=== PATIENT | male | born 1955 | race Caucasian/White ===

== ENCOUNTER → 2024-09-04 08:02 | Outpatient (REF) | payer MEDICARE, OTHER, SELFPAY ==
[2024-09-04 09:17] LABS: Hematocrit 46.2 % (39.0-52.0); Hemoglobin 15.8 g/dL (13.0-18.0); Mean Corp Hgb Conc. 34.2 g/dL (33.0-37.0); Mean Corpuscular Hgb 31.1 pg (27.0-31.0); Mean Corpuscular Volume 90.9 fL (80.0-94.0); Platelet Count 145 10^3/uL (130-400); Red Blood Cell Count 5.08 10^6/uL (4.70-6.10); Red Cell Dist. Width 12.2 % (11.5-14.5); White Blood Cell Count 5.3 10^3/uL (4.8-10.8)
[2024-09-04 10:10] LABS: Blood Urea Nitrogen 18 mg/dl (9-20); Calcium 9.1 mg/dl (8.4-10.2); Carbon Dioxide 30 mmol/L (22-30); Chloride 104 mmol/L (98-107); Glucose 90 mg/dl (70-99); Potassium 4.5 mmol/L (3.5-5.1); Sodium 143 mmol/L (135-145); eGFR > 60.00
== END ==
LOC: SDSPAT 08:02
PROVIDERS: ATTENDING PHYSICIAN Surgery; FAMILY PHYSICIAN Family Medicine
DX: Z01.818 Encounter for other preprocedural examination (principal)
CPT/HCPCS: 36415; 80048; 85027; 93005

== ENCOUNTER 2024-09-17 06:34 | Day surgery (SDC) | payer MEDICARE, OTHER, SELFPAY ==
[2024-09-04 14:19] VITALS: BMI 25.4
[2024-09-17] VITALS (8 sets, daily range): BP systolic 106–132; BP diastolic 66–79; BMI 25.4
[2024-09-17] MEDS: TYLENOL 1000 MG PO (08:35)
[2024-09-17] MEDS: NORMOSOL-R/PLASMALYTE-A 1000 IV (08:50)
== END 2024-09-17 13:46 | disposition home or self-care (01) ==
LOC: SDS 06:34
PROVIDERS: ATTENDING PHYSICIAN Surgery
DX: K40.91 Unilateral inguinal hernia, without obstruction or gangrene, recurrent (principal); K66.0 Peritoneal adhesions (postprocedural) (postinfection); J45.909 Unspecified asthma, uncomplicated
CPT/HCPCS: 49651; C1781